=== PATIENT | female | born 1985 | race Caucasian/White ===

== ENCOUNTER 2017-06-28 11:50 | Emergency (ER) | payer OTHER ==
[2017-06-28 11:59] VITALS: BMI 21.4
--- NOTE | 2017-06-28 12:43 | PDOC ---
Attending Attestation - HPI HPI: 06/28/17 15:06 The patient is a 32 year old female with no significant PMH who presents to the emergency department with a worsening headache beginning approximately 1 month ago. She describes her headache as pressure like sensation frontally and occipitally with associated upper neck pain, slight photophobia, and phonophobia which became worse this morning. She reports taking Advil as needed throughout the month to no relief. She denies any head trauma. Allergies: NKA - Physicial Exam PE: 06/28/17 15:06 GENERAL: Awake, alert, and fully oriented, in no acute distress HEAD: No signs of trauma EYES: PERRLA, EOMI, sclera anicteric, conjunctiva clear ENT: Auricles normal inspection, hearing grossly normal, nares patent, oropharynx clear without exudates. Moist mucosa NECK: Normal ROM, supple, no lymphadenopathy, JVD, or masses LUNGS: Breath sounds equal, clear to auscultation bilaterally. No wheezes, and no crackles HEART: Regular rate and rhythm, normal S1 and S2, no murmurs, rubs or gallops ABDOMEN: Soft, nontender, normoactive bowel sounds. No guarding, no rebound. No masses EXTREMITIES: Normal range of motion, no edema. No clubbing or cyanosis. No cords , erythema, or tenderness BACK: No midline spinal tenderness in cervical/thoracic/lumbar region NEUROLOGICAL: Normal speech, cranial nerves intact, negative pronator drift, 5/ 5 strength in all 4 extremities, normal sensation to light touch in all 4 extremities, normal cerebellar exam, normal gait, normal reflexes and tone SKIN: Warm, Dry, normal turgor, no rashes or lesions noted. <Monroe Garnica - Last Filed: 06/28/17 15:06> - Resident Resident Name: Tejas Davies - ED Attending Attestation I have performed the following: I have examined & evaluated the patient, The case was reviewed & discussed with the resident, I agree w/resident's findings & plan, Exceptions are as noted - Medical Decision Making 06/28/17 13:38 32-year-old female with no significant past medical history presents with 1 month of progressive headache. Vitals are unremarkable. Exam is unremarkable. Patient is neurologically intact. Likely tension headache given distribution and gradual onset. Migraine is also on the differential although headache is not 1 sided. Unlikely subarachnoid hemorrhage as headache was gradual in onset and patient is neurologically intact. Also possible patient has space-occupying lesion given the prolonged symptoms, discussed this possibility with the patient and recommended that she follow up with a neurologist upon discharge for workup. In the meantime will provide pain control and reassess. 06/28/17 15:22 Patient reports significant improvement in headache with fluids and Reglan. Remains neurologically intact. She requests discharge home and will follow up with neurology within 1 week. I discussed the physical exam findings, ancillary test results and final diagnoses with the patient. I answered all of the patient's questions. The patient was satisfied with the care received and felt comfortable with the discharge plan and treatment plan. The patient will call their primary care physician within 24 hours to arrange follow-up and will return to the Emergency Department with any new, persistent or worsening symptoms. <Dirk Topete - Last Filed: 06/28/17 15:24>
--- NOTE | 2017-06-28 12:45 | PDOC ---
History of Present Illness - General Chief Complaint: Headache Stated Complaint: HEADACHES Time Seen by Provider: 06/28/17 12:23 - History of Present Illness Initial Comments: 06/28/17 12:40 32 yo F with no significant pmh who presents with TEAGUE. Patient reports one month of progressive worsening, pressure like, bifrontal and BL neck pain asx. w/ photophpbia, and phonophoba. Pain worse at night. Not aggravated with physical activity. Denies neck stiffness, N/V, vision changes, scintillating scotomas, weakness, sensory changes, lacrimation, rhinorrhea. LMP ( 06/24/17). 1 cup of coffe per day. Denies head trauma. Denies F/C, CP, SOB, urinary complaints, abdominal pain, diarrhea, constipation, lightheadedness, vertigo. Intermittent advil use with no improvement in symptoms. Past History - Past Medical History Allergies/Adverse Reactions: Allergies Allergy/AdvReac Type Severity Reaction Status Date / Time No Known Allergies Allergy Verified 06/28/17 11:54 Home Medications: Ambulatory Orders Metoclopramide HCl [Reglan] 5 mg PO PRN PRN #30 tablet MDD 2 Tab 06/28/17 COPD: No GI Disorders: Yes (GASTRITIS) - Suicide/Smoking/Psychosocial Hx Smoking History: Never smoked Have you smoked in the past 12 months: No Information on smoking cessation initiated: No Hx Alcohol Use: No Drug/Substance Use Hx: No Substance Use Type: None Review of Systems - Review of Systems Comments:: 06/28/17 12:45 GENERAL/CONSTITUTIONAL: No fever or chills. No weakness. HEAD, EYES, EARS, NOSE AND THROAT: No change in vision. No ear pain or discharge. No sore throat.- CARDIOVASCULAR: No chest pain or shortness of breath RESPIRATORY: No cough, wheezing, or hemoptysis. GASTROINTESTINAL: No nausea, vomiting, diarrhea or constipation. GENITOURINARY: No dysuria, frequency, or change in urination. MUSCULOSKELETAL: No joint or muscle swelling or pain. No neck or back pain. SKIN: No rash NEUROLOGIC:+TEAGUE. No vertigo, loss of consciousness, or change in strength/ sensation. ENDOCRINE: No increased thirst. No abnormal weight change HEMATOLOGIC/LYMPHATIC: No anemia, easy bleeding, or history of blood clots. ALLERGIC/IMMUNOLOGIC: No hives or skin allergy. *Physical Exam - Vital Signs Last Vital Signs Temp Pulse Resp BP Pulse Ox 98.4 F 101 H 18 120/72 100 06/28/17 11:56 06/28/17 11:56 06/28/17 11:56 06/28/17 11:56 06/28/17 11:56 - Physical Exam Comments: 06/28/17 12:47 GENERAL: Awake, alert, and fully oriented, in no acute distress HEAD: No signs of trauma, normocephalic, atraumatic EYES: PERRLA, EOMI, sclera anicteric, conjunctiva clear ENT: Hearing grossly normal, nares patent, oropharynx clear without exudates. Moist mucosa NECK: Normal ROM, no JVD, or masses LUNGS: No distress, speaks full sentences, clear to auscultation bilaterally HEART: Regular rate and rhythm, normal S1 and S2, no murmurs, rubs or gallops, peripheral pulses normal and equal bilaterally. EXTREMITIES : Normal inspection, Normal range of motion, no edema. No clubbing or cyanosis. NEUROLOGICAL: Cranial nerves II through XII grossly intact. Normal speech, normal gait, no focal sensorimotor deficits SKIN: Warm, Dry, normal turgor, no rashes or lesions noted. Medical Decision Making - Medical Decision Making 06/28/17 12:48 32 yo F with no significant pmh who presents with one month of progressive worsening, pressure like, bifrontal and BL neck pain asx. w/ photophpbia, and phonophoba. Worse at night and aggravated with physical activity. Denies neck stiffness, head trauma, N/V, vision changes, scintillating scotomas, weakness, sensory changes, lacrimation, rhinorrhea. Denies F/C, CP, SOB, urinary complaints, abdominal pain, diarrhea, constipation, lightheadedness, vertigo. LMP ( 06/24/17). Physical exam unremarkable w/ absent neuro deficits. Mildly tachycardic ~ 101. Patient s/s likelye 2/2 tension type TEAGUE. Low suspsicion of SAH, hematoma, ICH in absence of neruo findings. Patient non toxic appearign, with absent nuchal findings. Low suspicion of infectious etioogy /meningitis. TEAGUE not typical of migraine. Non pulsatile, bilateral with radiation to neck more characteristic of tension type TEAGUE. Absent autonomic findings to suggest cluster type TEAGUE. ED Course: 06/28/17 15:18 Iburpofen 600 mg Tylenol 1000 mg NS 1 L Patient symptoms improved. Advised to f/u with neurology. *DC/Admit/Observation/Transfer Diagnosis at time of Disposition: Tension-type headache Qualifiers: Headache chronicity pattern: acute headache Intractability: not intractable Qualified Code(s): G44.209 - Tension-type headache, unspecified, not intractable - Discharge Dispostion Disposition: HOME Condition at time of disposition: Stable Admit: No - Referrals Referrals: Ulises Simmons MD [Staff Physician] - - Patient Instructions Printed Discharge Instructions: DI for Hormonal and Tension Headaches Additional Instructions: Please return to the emergency department with any new or worsening symptoms or concerns. Although unlikely, as we discussed, please follow up with neurology within one week for further evaluation and to rule out a brain mass. Print Language: COMORAN - Post Discharge Activity - Attestations Physician Attestion: 06/28/17 13:04 I attest to the documentation in this note.
[2017-06-28] MEDS ORDERED: IBUPROFEN 600 MG TABLET (FP) PO ONE ×2 (12:54→13:04)
[2017-06-28] MEDS ORDERED: ACETAMINOPHEN 500 MG TABLET (FP) PO ONE (13:06)
[2017-06-28] MEDS ORDERED: NAPROXEN 500 MG TABLET (FP) PO ONE (13:07)
[2017-06-28] MEDS ORDERED: SODIUM CHLORIDE 1,000 ML IV STA (13:33)
[2017-06-28] MEDS ORDERED: METOCLOPRAMIDE HCL INJECTION 10 MG/2 ML VIAL IVPUSH ONE (13:33)
[2017-06-28] MEDS ORDERED: METOCLOPRAMIDE HCL INJECTION 10 MG/2 ML VIAL ONE (13:54)
[2017-06-28 15:42] VITALS: BP 122/78; PULSE 68; TEMP 98.2
== END 2017-06-28 15:43 | disposition home or self-care (01) ==
LOC: JER 11:50
PROC: 3E033GC Introduction of Other Therapeutic Substance into Peripheral Vein, Percutaneous Approach (ICD-10-PCS; principal; 2017-06-28)
DX: G44.209 Tension-type headache, unspecified, not intractable (principal)
CPT/HCPCS: 99281-25